=== PATIENT | male | born 1960 | race Caucasian/White ===

== ENCOUNTER → 2017-02-12 | Outpatient (CLI) | payer MEDICARE, MEDICAID ==
[~2017-02-12] MED LIST: ATORVASTATIN CA80 MG PO; CHEWABLE ASPIRI81 MG PO; CIPRO 500MG TA500 MG PO; CIPROFLOXACIN500 MG PO; CLINDAMYCIN300 MG PO; CLOPIDOGREL75 M2 PO; COMBIVENT INH14.7 GM IN; ERYTHROMYCIN250 M2 PO; FINASTERIDE5 MG PO; HABITROL21 MG/24 H TD; HYDROCODONE BIT1 T39 PO; HYDROCODONE-APA1 TA1 PO; IMDUR 30MG. TAB30 MG PO; KEFLEX 500MG.500 MG PO; LIPITOR40 M1 PO; LISINOPRIL 5MG T5 MG PO; LISINOPRIL2.5 MG PO; LOPRESSOR 25MG.25 MG OR; LOPRESSOR 25MG.25 MG PO; METOPROLOL25 MG PO; MOTRIN 600MG.600 MG PO; NITROGLYCERIN0.4 MG SL; NITROSTAT 0.4M0.4 MG SL; OMEPRAZOLE20 MG PO; OXYMETAZOLINE NS; PERCOCET 5/3251 EACH PO; PERCOCET1 TAB PO; PLAVIX75 MG PO; PRAVACHOL 40MG40 MG PO; PRAVASTATIN 20M20 MG PO; SPIRIVA HA1 PUFF/INH IH; SYMBICORT 10.10.2 M1 IH; TYLENOL/COD #41 EAC1 PO; ULTRAM50 MG PO; VENTOLIN H0.09 MG/AC IH
[2017-02-12 13:06] LABS: LYMPH # 1.6 K/mm3 (0.7-4.5)
[2017-02-12 15:05] LABS: BUN 18 mg/dL (7-18); PROSTATE-SPECIFIC AG SCREEEN 0.5 ng/mL (0.0-4.0)
[2017-02-12 15:33] LABS: GFR (ESTIMATED) 87 ML/MIN (>60)
== END ==
LOC: LAB 12:52
PROVIDERS: Nurse Practitioner Family
DX: N40.0 Benign prostatic hyperplasia without lower urinary tract symptoms (principal); Z12.5 Encounter for screening for malignant neoplasm of prostate; I25.10 Atherosclerotic heart disease of native coronary artery without angina pectoris; J41.1 Mucopurulent chronic bronchitis; Z72.0 Tobacco use
CPT/HCPCS: G0103